=== PATIENT | male | born 1975 | race Caucasian/White ===

== ENCOUNTER → 2020-03-16 | Day surgery (SDC) | payer OTHER ==
[2020-03-12 18:26] LABS: BASOPHILS # (AUTO) 0.1 (0.0-0.1); BASOPHILS % 0.7 % (0.0-1.0); EOSINOPHILS # (AUTO) 0.1 (0.0-0.4); EOSINOPHILS % 1.6 % (0.0-6.0); HEMATOCRIT 46.3 % (38.2-49.6); HEMOGLOBIN 15.7 g/dL (14.0-18.0); LYMPHOCYTES # (AUTO) 2.9 (1.0-3.2); LYMPHOCYTES % 38.6 % (18.0-39.1); MEAN CORPUSCULAR HEMOGLOBIN 31.2 pg (28-32); MEAN CORPUSCULAR HGB CONC 33.9 g/dL (31-35); MONOCYTES # (AUTO) 0.8 (0.2-0.8); NEUTROPHILS # (AUTO) 3.6 (2.1-6.9); NEUTROPHILS % 47.1 % (38.7-80.0); PLATELET COUNT 159 x10e3/uL (140-360); RED BLOOD COUNT 5.03 x10e6/uL (4.3-5.7); RED CELL DISTRIBUTION WIDTH 12.6 % (11.7-14.4)
[2020-03-12 18:43] LABS: ANION GAP 12.9 mmol/L (8-16); CREATININE, SERUM 1.52 mg/dL (0.72-1.25); POTASSIUM 3.9 mmol/L (3.5-5.1)
[~2020-03-16] MED LIST: ACETAMINOPHEN 1000 MG/100 ML IV ONE; AMITRIPTYLINE H25 MG PO; BUPIVACAINE HCL 0.5% INJ 30 ML VIAL INJ ONE; CEFAZOLIN SOD 1 GM/NS 50ML 100 ML IV ONE; DEXAMETHASONE SOD PHOS INJ 4 MG/ML VIAL ONE; EPINEPHRINE 1 MG/ML 30ML VIAL ONE; IPRATROPIU0.2 MG/1 M NS; LIDOCAINE HCL 2% LOCAL INJ 5 ML SDV VIAL INJ ONE; ONDANSETRON HCL INJ 2MG/ML 2ML 2 MG/ML VIAL ONE; PANTOPRAZOLE SO40 MG PO; PROPOFOL IV EMULSION 10 MG/ML 20 ML VIAL ONE; PROPRANOLOL HCL10 MG PO; SEVOFLURANE INHAL SOLN 250 ML PEN BTL ONE; SIMVASTATIN40 MG PO; TESTIM5 GM TOP; TESTOSTERONE5 GM TOP; VYVANSE70 MG PO
[2020-03-16 08:15] VITALS: BP 121/87
--- NOTE | 2020-03-16 15:25 | Operative Report ---
DATE OF PROCEDURE: 03/16/2020 SURGEON: MAEVE CUNHA MD HISTORY: Mr. Tucker is a 44-year-old male with ongoing pain of his left knee secondary to underlying medial meniscus tear along with arthritic changes and knee chondromalacia. The patient elected to forgo any further conservative treatment and proceed along with a diagnostic arthroscopy of his left knee. Risks and benefits of surgery have been outlined to him, consisting but not limited to the following: Infection, blood loss, nerve, vessel or tendon injury, DVT, ongoing pain, or stiffness. The patient was seen and identified in the preoperative holding area. The left knee was marked by myself and the risks and benefits as noted above were discussed with him once again and informed consent was obtained and verified. The patient was then brought back to the operative suite, placed supine on the operative table, and time-out was taken to confirm Mr. Cleveland Tucker for a diagnostic arthroscopy of his left knee. All were in agreement including nursing staff, Anesthesia, and myself. The patient was then given intubation and anesthetic. A non-sterile tourniquet was placed high on the left upper thigh. Left lower extremity was then sterilely prepped and draped in usual sterile fashion. The limb was exsanguinated and tourniquet was inflated to approximately 250 mmHg. The 15 Bard-Toan blade was used to make the portal incisions. Vertical portal incisions were made well outside of the borders of the patellar tendon along the medial and lateral joint line respectively. Dashawn trocar was inserted protecting patella tendon at all times. Following examination of the knee, the patient had significant amount of villonodular synovitis throughout the knee. Through both the medial and lateral portals, synovectomy was carried out removing the inflamed villonodular synovitis using a 4.0 shaver. The ACL shows a slight laxity to it and I went ahead, tighten the ACL, completing the ACL thermoplasty, tightening of the ACL and upon probing, there was some marked significant improvement. The patient did have multiple rice loose bodies floating out to both the medial and lateral compartments as well as the medial and lateral para-patellar gutters ranging from 2 to 3 mm in size to as large as 5-6 mm. I went ahead and made a superior accessory portal along the superior aspect for removal of loose bodies, which were removed using arthroscopic grasper and shaver. Synovectomy of the patella was carried out, also the patellofemoral compartment. MEDIAL COMPARTMENT: Examination of the medial compartment shows a peripheral tear along the posterior horn and mid body, partial head of the small flap tear along the anterior horn. The partial medial meniscectomy was carried out using a meniscal biter. Upon probing, the medial meniscus was found to be intact and stable. The patient had grade 1 changes to both the medial and femoral condyle and tibial plateau, but no signs of cartilage defect. LATERAL COMPARTMENT: Examination of the lateral compartment shows lateral meniscus to be intact. Just mild peripheral fraying, but no definitive tear. Grade 1 changes to lateral femoral condyle and tibial plateau, but no signs of chondral defect. Examination of the patellofemoral joint shows marked arthritic changes of stage 3 chondromalacia of both the medial and lateral facet. Grade 2 changes to the trochlear groove. This patient articular Chondroplasty was completed using a 4.0 shaver removing fibrillated cartilage down to a smooth contoured surface. Remaining synovectomy was completed. The patient was also found to have superomedial plica. The plica was excised using arthroscopic biter and shaver, and plica incision was completed. First, second and final counts were found to be correct. Upon which time, the knee was then thoroughly irrigated out. The knee was then injected with Marcaine for postoperative pain relief. The patient's portal site was then closed using 4-0 nylon suture in interrupted fashion. Xeroform compressive dressing applied. Tourniquet was released and there was no acute bleeding noted. Capillary refill was brisk. Pulse 2/4. The patient was then subsequently extubated and transferred to PACU. PREOPERATIVE DIAGNOSES: 1. Left knee medial meniscus tear. 2. Left knee chondromalacia. POSTOPERATIVE DIAGNOSES: 1. Left knee peripheral medial meniscus tear of the anterior horn and posterior horn. 2. Left knee moderate patellofemoral chondromalacia. 3. Left knee with mild synovitis. 4. Rice loose bodies, left knee. 5. Left knee superomedial plica. 6. ACL laxity and partial tear. PROCEDURES: 1. Diagnostic arthroscopy of the left knee with partial medial meniscectomy. 2. Left knee chondroplasty of the patellofemoral joint. 3. Arthroscopic synovectomy of the left knee for villonodular synovitis. 4. Removal of rice loose bodies of the left knee. 5. Excision and removal of the left knee superomedial plica. 6. Anterior cruciate ligament thermoplasty. ANESTHESIA: General. ESTIMATED BLOOD LOSS: Less than 5 mL. SPECIMENS: Rice bodies, synovium, and cartilage. COMPLICATIONS: None. CONDITION: Stable to PACU. The patient was seen in PACU. Dressings are clean and dry. Capillary refill is brisk. The patient discharged home with Keflex as well as [place]. Weightbearing as tolerated with assistance of crutches or walker. Dressing change was discussed with the patient as well as nursing staff. MD CIARA ESCOBEDO/LA NENA /[id number] MTDD
== END | disposition home or self-care (01) ==
LOC: OR 05:28
PROVIDERS: ATTEND Orthopaedic Surgery
DX: S83.222A Peripheral tear of medial meniscus, current injury, left knee, initial encounter (principal); S83.512A Sprain of anterior cruciate ligament of left knee, initial encounter; S83.262A Peripheral tear of lateral meniscus, current injury, left knee, initial encounter; M67.52 Plica syndrome, left knee; S83.272A Complex tear of lateral meniscus, current injury, left knee, initial encounter; M22.42 Chondromalacia patellae, left knee; M17.12 Unilateral primary osteoarthritis, left knee; G47.33 Obstructive sleep apnea (adult) (pediatric); I10 Essential (primary) hypertension; E66.09 Other obesity due to excess calories; X58.XXXA Exposure to other specified factors, initial encounter; Z88.8 Allergy status to other drugs, medicaments and biological substances; Z01.810 Encounter for preprocedural cardiovascular examination; Z01.812 Encounter for preprocedural laboratory examination; Z11.59 Encounter for screening for other viral diseases
CPT/HCPCS: 29881; 36415; 80048; 85025; 93005; J0131; J0690; J1100; J2001; J2405; J2704; U0002